=== PATIENT | male | born 1985 | race African-American/Black ===

== ENCOUNTER 2023-11-27 10:06 | Emergency (ER) | payer OTHER ==
[~2023-11-27] VITALS: Ht 175.3 cm; Wt 86.0 kg
[2023-11-27 10:09] VITALS: O2SAT 99
[2023-11-27] MEDS: KETOROLAC 15MG/ML VIAL IM ONE (11:29)
[2023-11-27] MEDS: TETANUS, DIPHTHERIA, PERTUSSIS VAC/PF 0.5ML (>10YR OLD) IM ONE (11:30)
[2023-11-27] MEDS: LIDOCAINE HCL 1% 20ML VIAL INFIL ONE (11:30)
[2023-11-27] MEDS ORDERED: IBUP-2029 MT (13:08)
[2023-11-27 13:33] VITALS: BP 129/85; PULSE 97; RESP 16; TEMP 97.9
== END 2023-11-27 13:39 | disposition home or self-care (01) ==
LOC: ER 10:31
DX: S61.212A Laceration without foreign body of right middle finger without damage to nail, initial encounter (principal); J45.909 Unspecified asthma, uncomplicated; X58.XXXA Exposure to other specified factors, initial encounter; Y93.89 Activity, other specified; Y92.89 Other specified places as the place of occurrence of the external cause; Y99.8 Other external cause status
CPT/HCPCS: 99284; 73140; 90715; 12002; 90471; 96372; J1885; J3490

== ENCOUNTER 2023-11-29 07:22 | Emergency (ER) | payer OTHER ==
[~2023-11-29] VITALS: Ht 177.8 cm; Wt 81.0 kg
[~2023-11-29 07:22] MED LIST: IBUP-2029 MT
[2023-11-29 07:37] VITALS: O2SAT 98
[2023-11-29 10:08] VITALS: BP 118/77; PULSE 67; RESP 18; TEMP 98.1
== END 2023-11-29 10:38 | disposition home or self-care (01) ==
LOC: ER 07:22
DX: S61.212D Laceration without foreign body of right middle finger without damage to nail, subsequent encounter (principal); J45.909 Unspecified asthma, uncomplicated; X58.XXXD Exposure to other specified factors, subsequent encounter
CPT/HCPCS: 29130; 99282